=== PATIENT | female | born 1955 | race Caucasian/White ===

== ENCOUNTER 2018-09-13 14:16 | Emergency (ER) | payer MEDICARE, OTHER ==
[~2018-09-13] VITALS: Ht 167.6 cm; Wt 69.9 kg
[2018-09-13 15:04] LABS: BASO % 0 % (0-3); EOS % 0 % (0-3); HEMATOCRIT 37.7 % (36.0-47.0); HEMOGLOBIN 12.5 g/dL (12.0-15.5); LYMPH # 0.8 x10^3/uL (1.0-4.8); LYMPH % 10 % (24-48); MEAN CORPUSCULAR HEMOGLOBIN 29 pg (25-35); MEAN CORPUSCULAR HGB CONC 33 g/dL (31-37); MEAN CORPUSCULAR VOLUME 88 fL (79-100); MONO # 1.4 x10^3/uL (0.0-1.1); MONO % 18 % (0-9); NEUT # 5.5 x10^3uL (1.8-7.7); NEUT % 71 % (31-73); PLATELET COUNT 392 x10^3/uL (140-400); RED BLOOD COUNT 4.27 x10^6/uL (3.50-5.40); RED CELL DISTRIBUTION WIDTH 12.6 % (11.5-14.5); WHITE BLOOD COUNT 7.7 x10^3/uL (4.0-11.0)
--- NOTE | 2018-09-13 15:12 | RAD ---
AP chest 09/13/2017 CLINICAL INDICATION: Shortness of breath and weak. COMPARISON: None. FINDINGS: Mild elevation of the right hemidiaphragm. No pleural effusion, pneumothorax or focal consolidation. IMPRESSION: No acute cardiopulmonary abnormality. Electronically signed by: Otf Yang MD (09/13/2018 3:07 PM) [facility]
[2018-09-13 15:25] LABS: ALBUMIN 2.4 g/dL (3.4-5.0); ALBUMIN/GLOBULIN RATIO 0.6 (1.0-1.7); CALCIUM 9.2 mg/dL (8.5-10.1); CREATININE 0.8 mg/dL (0.6-1.0); TOTAL BILIRUBIN 1.1 mg/dL (0.2-1.0); TOTAL PROTEIN 6.2 g/dL (6.4-8.2)
[2018-09-13] MEDS ORDERED: IPRATRPIUM/ALBUTEROL 0.5/2.5MG 3 ML NEBU. NEB ONE (15:30)
[2018-09-13 15:31] LABS: POTASSIUM 2.9 mmol/L (3.5-5.1)
[2018-09-13 15:34] LABS: % BANDS 20 % (0-9); % LYMPHS 19 % (24-48); % MONOS 16 % (0-10); % SEGS 45 % (35-66)
[2018-09-13 15:36] LABS: PLT ESTIMATE ADEQUATE (ADEQUATE); TOXIC GRANULATION MOD
[2018-09-13 15:39] LABS: INFLUENZA A PATIENT NEGATIVE (NEGATIVE); INFLUENZA B PATIENT NEGATIVE (NEGATIVE)
[2018-09-13] MEDS ORDERED: POTASSIUM CHLORIDE 20 MEQ TABLET.ER. PO ONE (15:45)
[2018-09-13 16:40] LABS: BASE EXCESS ABG -3 mmol/L (-3-3); HCO3 ABG 20 mmol/L (21-28); PCO2 ABG 30 mmHg (35-46); PO2 ABG 71 mmHg (65-108); SAT O2 ABG 94 % (92-99)
[2018-09-13 16:41] LABS: FIO2 ABG 21
[2018-09-13 16:49] VITALS: BP 124/57
[2018-09-13] MEDS ORDERED: PRED50TA PO (16:57)
[2018-09-13] MEDS ORDERED: POTA20TA82 PO (16:57)
[2018-09-13] MEDS ORDERED: ALBU2.5V8 IH (16:57)
[2018-09-13] MEDS ORDERED: DOXY100C2 PO (16:57)
[2018-09-13] MEDS ORDERED: DOXYCYCLINE HYCLATE 100 MG TABLET PO ONE (17:00)
[2018-09-13] MEDS ORDERED: predniSONE 20 MG TABLET PO ONE (17:00)
--- NOTE | 2018-09-13 17:36 | PHYS DOC ---
Past Medical History Past Medical History: Cancer Additional Past Medical Histor: lymphatic leukemia Alcohol Use: None Drug Use: None Adult General Chief Complaint Chief Complaint: COUGH HPI HPI Patient is a 63 year old female presents with persistent cough, wheezing, nasal congestion with rhinorrhea past 10 days. No fever chills, sweats, chills sweats. Does report dyspnea with exertion. Reports chest tightness denies chest pain. No leg pain or swelling. No history of DVT or PE. Patient currently on chemotherapy for leukemia. Patient for her symptoms prior to today's complaint.[ ] Review of Systems Review of Systems Review symptoms as per history of present illness. All other review symptoms. All other systems were reviewed and found to be within normal limits, except as documented in this note. Current Medications Current Medications Current Medications Medications (Trade) Dose Ordered Sig/Chrissy Start Time Stop Time Status Last Admin Dose Admin Albuterol/ Ipratropium (Duoneb) 3 ml 1X ONCE 09/13/18 15:30 09/13/18 15:31 DC Doxycycline Hyclate (Vibra-Tab) 100 mg 1X ONCE 09/13/18 17:00 09/13/18 17:01 DC 09/13/18 17:03 100 MG Potassium Chloride (Klor-Con) 40 meq 1X ONCE 09/13/18 15:45 09/13/18 15:46 DC 09/13/18 16:04 40 MEQ Prednisone (Prednisone) 60 mg 1X ONCE 09/13/18 17:00 09/13/18 17:01 DC 09/13/18 17:04 60 MG Allergies Allergies Allergies Coded Allergies Type Severity Reaction Last Updated Verified No Known Drug Allergies 09/13/18 No Physical Exam Physical Exam Constitutional: Well developed, well nourished, no acute distress, non-toxic appearance. [] HENT: Normocephalic, atraumatic, bilateral external ears normal, oropharynx moist, no oral exudates, nose normal. [] Eyes: PERRLA, EOMI, conjunctiva normal, no discharge. [] Neck: Normal range of motion. [] Cardiovascular: Tachycardic, regular rhythm. [] Lungs & Thorax: Increased work of breathing, respiratory rate 25-30, coarse breath sounds/rales in bases, occasional sporadic expiratory wheeze, min conversational dyspnea, speaks in complete sentences.[] Abdomen: Bowel sounds normal. [] Skin: Warm, dry. [] Back: No tenderness. [] Extremities: No tenderness, negative Homans signs. [] Neurologic: Alert and oriented X 3, normal motor function, normal sensory function, no focal deficits noted. [] Psychologic: Affect normal, judgement normal, mood normal. [] Current Patient Data Vital Signs Vital Signs Date Time Temp Pulse Resp B/P (MAP) Pulse Ox O2 Delivery O2 Flow Rate FiO2 09/13/18 16:49 109 20 124/57 (79) Room Air 09/13/18 15:23 94 09/13/18 14:24 98.0 98.0 Lab Values Laboratory Tests Test 09/13/18 14:35 09/13/18 15:00 09/13/18 15:05 09/13/18 16:25 White Blood Count 7.7 x10^3/uL (4.0-11.0) Red Blood Count 4.27 x10^6/uL (3.50-5.40) Hemoglobin 12.5 g/dL (12.0-15.5) Hematocrit 37.7 % (36.0-47.0) Mean Corpuscular Volume 88 fL (79-100) Mean Corpuscular Hemoglobin 29 pg (25-35) Mean Corpuscular Hemoglobin Concent 33 g/dL (31-37) Red Cell Distribution Width 12.6 % (11.5-14.5) Platelet Count 392 x10^3/uL (140-400) Neutrophils (%) (Auto) 71 % (31-73) Lymphocytes (%) (Auto) 10 % (24-48) L Monocytes (%) (Auto) 18 % (0-9) H Eosinophils (%) (Auto) 0 % (0-3) Basophils (%) (Auto) 0 % (0-3) Neutrophils # (Auto) 5.5 x10^3uL (1.8-7.7) Lymphocytes # (Auto) 0.8 x10^3/uL (1.0-4.8) L Monocytes # (Auto) 1.4 x10^3/uL (0.0-1.1) H Eosinophils # (Auto) 0.0 x10^3/uL (0.0-0.7) Basophils # (Auto) 0.0 x10^3/uL (0.0-0.2) Segmented Neutrophils % 45 % (35-66) Band Neutrophils % 20 % (0-9) H Lymphocytes % 19 % (24-48) L Monocytes % 16 % (0-10) H Toxic Granulation Mod Platelet Estimate Adequate (ADEQUATE) Sodium Level 131 mmol/L (136-145) L Potassium Level 2.9 mmol/L (3.5-5.1) *L Chloride Level 93 mmol/L (98-107) L Carbon Dioxide Level 24 mmol/L (21-32) Anion Gap 14 (6-14) Blood Urea Nitrogen 11 mg/dL (7-20) Creatinine 0.8 mg/dL (0.6-1.0) Estimated GFR (Cockcroft-Gault) 72.0 BUN/Creatinine Ratio 14 (6-20) Glucose Level 112 mg/dL (70-99) H Calcium Level 9.2 mg/dL (8.5-10.1) Total Bilirubin 1.1 mg/dL (0.2-1.0) H Aspartate Amino Transferase (AST) 21 U/L (15-37) Alanine Aminotransferase (ALT) 18 U/L (14-59) Alkaline Phosphatase 102 U/L (46-116) IR-Fix-C-Type Natriuretic Peptide 128 pg/mL (0-124) H Total Protein 6.2 g/dL (6.4-8.2) L Albumin 2.4 g/dL (3.4-5.0) L Albumin/Globulin Ratio 0.6 (1.0-1.7) L Influenza Type A Antigen Negative (NEGATIVE) Influenza Type B Antigen Negative (NEGATIVE) Lactic Acid Level 0.9 mmol/L (0.4-2.0) O2 Saturation 94 % (92-99) Arterial Blood pH 7.45 (7.35-7.45) Arterial Blood pCO2 at Patient Temp 30 mmHg (35-46) L Arterial Blood pO2 at Patient Temp 71 mmHg (65-108) Arterial Blood HCO3 20 mmol/L (21-28) L Arterial Blood Base Excess -3 mmol/L (-3-3) FiO2 21 Laboratory Tests 09/13/18 14:35 Laboratory Tests 09/13/18 14:35 EKG EKG [] Radiology/Procedures Radiology/Procedures [Chest x-ray: No acute cardiopulmonary disease per radiology report] Course & Med Decision Making Course & Med Decision Making Pertinent Labs and Imaging studies reviewed. (See chart for details) [Patient with treatment, steroids and potassium replaced. Recommendations are for hospitalist admission for clinical pneumonia, hypokalemia and hyponatremia. Patient remains tachycardic and tachypnea is at high risk of outpatient treatment failure including disability and . Risks versus benefits versus alternatives of hospital admission discussed in detail. Patient verbalizes understanding of all options discussed but declines admission. Will treat empirically with instructions follow-up with PCP tomorrow. Patient is further advised that if she changes her mind regarding hospital admission her symptoms worsen, she should immediately return to the ED. Patient verbalizes understanding agreement discharge instructions prior to departure. ] Dragon Disclaimer Dragon Disclaimer This electronic medical record was generated, in whole or in part, using a voice recognition dictation system. Departure Departure Impression: Primary Impression: Pneumonia Additional Impressions: Hypokalemia Hyponatremia Disposition: HOME, SELF-CARE Condition: GOOD Patient Instructions: Pneumonia, Adult, [id number] Additional Instructions: You were in the emergency department for shortness of breath had persistent cough. Lab work and chest x-ray were performed and are consistent with clinical diagnosis of pneumonia. Please take an biotics, steroids and potassium as directed increase fluids and use inhaler every 4-6 hours as needed. Follow-up with your PCP in next 1-2 days for reevaluation if your symptoms worsen or change your mind regarding hospital admission, please return to the emergency department. Scripts Potassium Chloride (POTASSIUM CHLORIDE) 20 Meq Tablet.er 20 MEQ PO DAILY, #10 TAB.SR Prov: AUREA WALSH DO 09/13/18 Albuterol Sulfate (PROVENTIL HFA INHALER) 6.7 Gm Hfa.aer.ad 1 PUFF IH PRN Q4HRS PRN for FOR ASTHMA for 14 Days, #1 INHALER 0 Refills Prov: AUREA WALSH DO 09/13/18 Doxycycline Hyclate (DOXYCYCLINE HYCLATE) 100 Mg Capsule 1 CAP PO BID, #20 CAP Prov: AUREA WALSH DO 09/13/18 Prednisone (PREDNISONE) 50 Mg Tablet 1 TAB PO DAILY, #5 TAB Prov: AUREA WALSH DO 09/13/18 Problem Qualifiers AUREA WALSH DO Sep 13, 2018 17:36
== END 2018-09-13 17:26 | disposition home or self-care (01) ==
LOC: ER 14:16
DX: J18.9 Pneumonia, unspecified organism (principal); E87.6 Hypokalemia; E87.1 Hypo-osmolality and hyponatremia
CPT/HCPCS: 36415; 36600; 71045; 80053; 82805; 83605; 83880; 85007; 85025; 87040; 87804; 94640; 99284; J7512